=== PATIENT | female | born 1995 | race Caucasian/White ===

== ENCOUNTER 2023-12-16 00:45 | Emergency (ER) | payer OTHER, SELFPAY ==
--- NOTE | 2023-12-16 04:14 | ED.MUSCINJ ---
HPI-Injury
General
Chief Complaint: Musculo-Skeletal Complaint
Source: patient
Exam Limitations: none
Time Seen by Provider: 12/16/23 03:52
Nursing documentation reviewed up to this point in time: agreed with
History of Present Illness-Injury
Initial Injury comments:
Pleasant 28-year-old female that presents with right foot pain. She was pumping gas and tripped over the pump hose. She was unable to bear weight. Denies head injury or loss of consciousness. Reports no other injury.
Past History
Past History
ED Past Medical History: Asthma and Other (BISHOP)
ED Past Surgical History: None
Social History
Tobacco: Non-smoker
Alcohol: Occasional
Drug: None
Personal: Single
Living: with family
Employment: Student
Family History
Family History: Other (Noncontributory)
Musculoskeletal Injury Exam
Musculoskeletal Injury Exam
Right Foot:
Pain with Movement?: Moderate
Tender to palpation?: Moderate
Soft tissue swelling?: Mild
External deformity and angulation?: None
Joint effusion?: None
Contusion?: Mild
Hematoma-local bleeding into tissue?: None
Strain- Sprain- Tear (Connective tissue injury)?: Moderate
Malalignment/deformity?: No
Range of motion: Limited
Distal skin color and temperature: normal-warm & good color
Capillary Refill: normal
Normal distal neurovascular exam?: Yes
Phy Exam
General Physical Exam
General Presentation: well appearing and mild distress
General age: appears stated age
General Skin: warm
General Habitus: normal
Pulmonary Exam
Pulmonary Exam: no respiratory distress and no cough
Neurological Exam
Neurological Exam: alert and oriented x3
Musculoskeletal Exam
Musculoskeletal Exam: joint swelling and neuro vasc intact
Skin Exam
Skin Exam: normal color and warm/dry
Psychiatric Exam
Psychiatric Exam: normal mood/affect
Injury Course
Orders/Labs/Results
Orders:
Orders
12/16/23 00:52
Foot, Right 3 View [CR Foot - Right Min 3 Views] Urgent
Comment:
Reason For Exam: FALL
12/16/23 04:13
Crutches-Treatment ONCE
Splints/Slings/Crut- Treatment ONCE
*Radiology
Radiology exam reviewed: all reviewed NAD by ED Provider
*Pulse Oximetry
Patient hypoxic: no
*Critical Care Note
Total Time (30-74mins, 75-104mins- exclusive of procedures): Not Applicable
ED Attending Note
-
Portions of this chart may have been created with voice recognition software.� Occasional wrong word or��sound alike� substitutions may have occurred due to the inherent limitations of voice recognition software.
Discharge Plan
Departure
Patient Disposition: Home (Routine Discharge)
Date of Disposition: 12/16/23
Time of Disposition: 04:16
Patient with high blood pressure during this ER visit?: Yes
Discharge Problem:
Contusion of foot
Instructions: How to Use Crutches, Muscle and Bone Pain (DC), Using Cold for Pain, Splint Care, BLOOD PRESSURE
Prescriptions:
No Action
Bystolic
2.5 mcg PO HS
Ondansetron
4 mg PO PRN (Reason: nausea)
Xopenex Inhalant Solution:
1 puff inhalation PRN (Reason: SOB)
famotidine 20 MG tablet
20 mg PO BID Qty: 30 0RF
ibuprofen 600 MG tablet
600 mg PO Q6 PRN (Reason: pain) Qty: 20 0RF
ondansetron 4 MG tablet,disintegrating
4 mg PO TIDPRN PRN (Reason: nausea/vomiting) Qty: 14 0RF
Referrals:
Morelia Lal CRNP [Family Provider] -
Adalberto Cuba MD [Active] - Call in 1-3 days for appt
Activity Restrictions/Additional Instructions:
It was a pleasure meeting you and taking part in your care. We hope for your continued healing and wellness.
Please read discharge instructions in their entirety. However, they are for general education and may not describe your exact diagnosis at discharge. Information on your ER visit and medical conditions were discussed with you along with appropriate
follow up information...
If indicated, please take your medications as instructed and indicated on discharge paperwork.
Please schedule a follow up appointment as directed. Call to schedule an appointment
Please return to the emergency department with ANY change in, persisting, or worsening of symptoms. If any of your symptoms do not improve, or persist, or become more severe within 6-12 hours, please return to the emergency department for further
care.
Please return to the emergency department if you develop a headache, neck pain/stiffness, fever greater than 100.4F, chest pain, shortness of breath, persistent nausea, vomiting, slurred speech, difficulty walking, numbness/tingling, weakness, signs
of infection or any other symptoms that are worrisome to you.
If you have any questions or concerns please do not hesitate to call the Hospital at or E-mail me directly at [email or web address]
Interventions
Interventions:
*Risk Screen - Suicide Last Done: 12/16/23 00:49
*General Assessment Last Done: 12/16/23 03:05
*Neglect/Abuse Screening Last Done: 12/16/23 00:49
ED- Fall Risk Assessment Last Done: 12/16/23 03:05
*ED COVID-19 Vaccine History Last Done: 12/16/23 03:05
ED-Musculoskeletal Assessment Last Done: 12/16/23 03:05
Discharge Date and Time
Print Language: GREEK
== END 2023-12-16 04:45 | disposition home or self-care (01) ==
LOC: EMR 00:45
PROVIDERS: EMERGENCY PHYSICIAN Student in an Organized Health Care Education/Training Program; FAMILY PHYSICIAN Nurse Practitioner Family
DX: S90.31XA Contusion of right foot, initial encounter (principal); W19.XXXA Unspecified fall, initial encounter; J45.909 Unspecified asthma, uncomplicated
CPT/HCPCS: 99283; 73630

== ENCOUNTER 2025-02-10 21:57 | Emergency (ER) | payer OTHER, SELFPAY ==
[2025-02-10 22:02] VITALS: BP 135/71
[2025-02-10 22:30] LABS: Hematocrit 39.8 % (37.0-47.0); Hemoglobin 13.8 g/dL (12.0-16.0); Mean Corp Hgb Conc. 34.7 g/dL (33.0-37.0); Mean Corpuscular Volume 87.7 fL (81.0-99.0); Nucleated Red Blood Cells % 0 %; Platelet Count 152 10^3/uL (130-400); Red Cell Dist. Width 12.5 % (11.5-14.5)
[2025-02-10 22:45] LABS: ALT (SGPT) 17 U/L (0-35); AST (SGOT) 26 U/L (14-36); Albumin 4.8 g/dl (3.5-5.0); Alkaline Phosphatase 72 U/L (38-126); Blood Urea Nitrogen 15 mg/dl (7-17); Calcium 9.7 mg/dl (8.4-10.2); Carbon Dioxide 24 mmol/L (22-30); Chloride 105 mmol/L (98-107); Glucose 81 mg/dl (70-99); Potassium 3.9 mmol/L (3.5-5.1); Sodium 138 mmol/L (135-145); Total Protein 7.9 g/dl (6.3-8.2); eGFR > 60.00
[2025-02-10 22:52] LABS: HCG, Serum Qualitative Screen Negative
--- NOTE | 2025-02-11 00:58 | ED.GENMED ---
History of Present Illness
General
Chief Complaint: Breathing Problem
Source: patient
Exam Limitations: none
Time Seen by Provider: 02/10/25 23:54
Nursing documentation reviewed up to this point in time: agreed with
History of Present Illness
History of Present Illness:
29-year-old female past medical history of POTS presenting to the emergency department today with concerns of sore throat cough body aches intermittent shortness of breath lightheadedness over the past month or so. Also has had significant ongoing
fatigue. Has followed up as an outpatient without specific diagnosis.
Past History
Past History
ED Past Medical History: Asthma and Other (BISHOP)
ED Past Surgical History: None
Social History
Tobacco: Non-smoker
Alcohol: Occasional
Drug: None
Personal: Single
Living: with family
Employment: Student
Family History
Family History: Other (Noncontributory)
Review of Systems
Review of Systems
Allergies reviewed?: Yes
All Other Systems: ROS reviewed and negative except as documented in HPI and ROS
Phy Exam
Physical Exam
Physical Exam:
GENERAL: Alert , in no apparent distress
EYE: pupils equal and reactive
NECK: Supple, no significant adenopathy.
ENT: o/p clr, mmm.
CARDIAC: Regular rate and rhythm .
LUNGS: Clear breath sounds bilaterally, no acute respiratory distress, no wheezes/rales/rhonchi
ABDOMEN: Soft, without focal tenderness, no r/g, no cvat
NEUROLOGICAL: Alert and oriented, no focal neuro deficits
SKIN: Warm and dry, skin intact.
MUSCULOSKELETAL: No edema, well perfused.
PSYCH: Normal and appropriate interaction.
Course
Orders/Labs/Results
Orders:
Orders
02/10/25 22:07
EKG [Electrocardiogram (*1)] Urgent
Reason for Study: Vertigo / Dizzy
EKG- Treatment ONCE
02/10/25 22:09
Test Result ONCE
02/10/25 22:19
Complete Blood Count/With Diff Urgent
Comprehensive Metabolic Panel Urgent
HCG, Serum Qualitative Screen Urgent
Lyme Progressive Urgent
Comment: ADDED
Monotest Urgent
Comment: ADDED
TSH Reflex To Free T4 Urgent
Comment: ADDED
02/11/25 00:23
Add On- LAB Urgent
Tests Added?: monotest, lyme progressive
02/11/25 01:06
Add On- LAB Urgent
Tests Added?: tsh reflex
Abnormal Lab Results
02/10/25
22:19
MPV 11.5 H fL
(7.4-10.4)
02/10/25 22:19
02/10/25 22:19
Vital Signs
Initial and Last Documented VS:
Initial Vital Signs
Temp Pulse Resp BP Pulse Ox
98.2 F 98 20 135/71 98
02/10/25 22:02 02/10/25 22:02 02/10/25 22:02 02/10/25 22:02 02/10/25 22:02
Last Documented Vital Signs
Temp Pulse Resp BP Pulse Ox
98.2 F 71 16 106/62 100
02/10/25 22:02 02/11/25 01:22 02/11/25 01:22 02/11/25 01:22 02/11/25 01:22
MDM/Problems Addressed
MDM/Problems Addressed:
29-year-old female describing multiple symptoms over the past month. Seem to start similar to an upper respiratory infection but unclear the diagnosis. She has had an assessment by her primary care doctor. Here on arrival vital signs are normal
patient in no distress physical examination without anything specific labs unremarkable. Alger test negative. Patient well-appearing here no evidence of any life-threatening or emergent pathology. Did seem to have some ongoing inflammation was
given single dose of dexamethasone to help with potential symptoms advised for close outpatient follow-up. Return precautions given. Lyme and thyroid testing pending at time of discharge.
*Pulse Oximetry
SaO2: 98
Oxygen Mode of Delivery: Room air
Patient hypoxic: no (100)
*Critical Care Note
Total Time (30-74mins, 75-104mins- exclusive of procedures): Not Applicable
ED Attending Note
-
Portions of this chart may have been created with voice recognition software.� Occasional wrong word or��sound alike� substitutions may have occurred due to the inherent limitations of voice recognition software.
Discharge Plan
Departure
Patient Disposition: Home (Routine Discharge)
Date of Disposition: 02/11/25
Time of Disposition: 01:41
Patient with high blood pressure during this ER visit?: No
Condition: Good
Covid-19: Not Applicable
Discharge Problem:
Fatigue, Lightheadedness
Prescriptions:
No Action
Bystolic
2.5 mcg PO HS
Ondansetron
4 mg PO PRN (Reason: nausea)
Xopenex Inhalant Solution:
1 puff inhalation PRN (Reason: SOB)
famotidine 20 MG tablet
20 mg PO BID Qty: 30 0RF
ibuprofen 600 MG tablet
600 mg PO Q6 PRN (Reason: pain) Qty: 20 0RF
ondansetron 4 MG tablet,disintegrating
4 mg PO TIDPRN PRN (Reason: nausea/vomiting) Qty: 14 0RF
Referrals:
Zeinab Onofre PA [Family Provider, Family Practice]
Activity Restrictions/Additional Instructions:
You came to the emergency department with ongoing symptoms. Here he had a reassuring assessment with no evidence of any emergent pathology. Please follow close with your primary care doctor. Return for any worsening, new or concerning symptoms.
Interventions
Interventions:
*Risk Screen - Suicide Last Done: 02/10/25 22:02
*General Assessment Last Done: 02/10/25 22:02
*Neglect/Abuse Screening Last Done: 02/10/25 22:02
*ED COVID-19 Vaccine History Last Done: 02/10/25 22:02
ED- Cardiac Assessment Last Done: 02/10/25 23:45
ED- Pulmonary Assessment Last Done: 02/10/25 23:45
Discharge Date and Time
Print Language: LITHUANIAN
[2025-02-11 01:22] VITALS: BP 106/62
[2025-02-11] MEDS: DECADRON 10 MG PO (01:47)
== END 2025-02-11 01:49 | disposition home or self-care (01) ==
LOC: EMR 21:57
PROVIDERS: EMERGENCY PHYSICIAN Student in an Organized Health Care Education/Training Program; FAMILY PHYSICIAN Physician Assistant
DX: R53.83 Other fatigue (principal); R42 Dizziness and giddiness; G90.A Postural orthostatic tachycardia syndrome [POTS]; J45.909 Unspecified asthma, uncomplicated
CPT/HCPCS: 99283; 80053; 84443; 84703; 85025; 86308; 86618; 93005

== ENCOUNTER → 2025-02-28 11:30 | Outpatient (REF) | payer OTHER, SELFPAY | LOC: RAD 11:30 | PROVIDERS: ATTENDING PHYSICIAN Physician Assistant | DX: R53.83 Other fatigue (principal); R05.2 Subacute cough | CPT/HCPCS: 71046 ==

== ENCOUNTER → 2025-03-02 12:24 | Outpatient (REF) | payer OTHER, SELFPAY | LOC: WDC 12:24 | PROVIDERS: ATTENDING PHYSICIAN Physician Assistant | DX: Z12.31 Encounter for screening mammogram for malignant neoplasm of breast (principal); Z80.3 Family history of malignant neoplasm of breast | CPT/HCPCS: 77063; 77067 ==